=== PATIENT | female | born 1945 | race African-American/Black ===

== ENCOUNTER 2018-02-01 15:11 | Emergency (ER) | payer OTHER ==
[2018-02-01] MEDS ORDERED: Albuterol Sulfate 2.5 mg/0.5 ml Neb ONE (15:34)
[2018-02-01] MEDS ORDERED: Sodium Chloride 0.9% 500 ML ONE ×2 (15:34→16:36)
--- NOTE | 2018-02-01 15:48 | RAD ---
CHEST 1 VIEW: HISTORY: Dyspnea. COMPARISON: None. FINDINGS: There is complete volume loss of the right hemithorax with rightward shift of the mediastinum. Old r ight-sided posterior rib fractures. There are surgical clips seen along the right hilum. There is mild interstitial pulmonary edema. There appears to be a catheter coiled over the left gail thorax of uncertain location. IMPRESSION: 1. Complete volume loss right hemithorax, likely pneumonectomy changes as there are surgical clips a long the right hilum. 2. What appears to be a catheter projecting in the left hemithorax or uncertain location separate fr om the nasal canula. 3. Mild pulmonary edema. POS: [facility]
[2018-02-01 15:54] LABS: #Lymphocytes 0.9 thou/uL (1.20-3.40); #Monocytes 0.2 thou/uL (0.11-0.59); #Neutrophils 5.6 thou/uL (1.40-6.50); %Basophils 0.2 % (0.0-1.0); %Eosinophils 0.1 % (0.0-10.0); %Lymphocytes 13.7 % (21.0-51.0); %Neutrophils 83.1 % (42.0-75.0); Hemoglobin 10.6 g/dL (12.0-16.0); Mean Corpuscular Hemoglobin 25.3 pg (27.0-31.0); Mean Corpuscular Volume 81.7 fL (78.0-98.0); Mean Platelet Volume 8.4 fL (7.4-10.4); Platelet Count 182 thou/uL (130-400); RBC Distribution Width 15.1 % (11.5-14.5); Red Blood Cell (RBC) Count 4.18 mill/uL (4.20-5.40); White Blood Cell (WBC) Count 6.7 thou/uL (4.8-10.8)
[2018-02-01 16:09] LABS: ALT (SGPT) 16 U/L (8-55); AST (SGOT) 20 U/L (5-34); Albumin 3.9 g/dL (3.4-4.8); Alkaline Phosphatase 42 U/L (40-150); Anion Gap 15 mmol/L (10-20); BUN (Urea Nitrogen) 22 mg/dL (9.8-20.1); Bilirubin, Total 0.5 mg/dL (0.2-1.2); Calc. Creatinine Clearance 0 mL/min (70-130); Calcium 9.1 mg/dL (7.8-10.44); Carbon Dioxide 23 mmol/L (23-31); Chloride 109 mmol/L (98-107); Estimated GFR-MDRD 52; Globulin 2.6 g/dL (2.4-3.5); Glucose 196 mg/dL (83-110); Potassium 3.7 mmol/L (3.5-5.1); Protein, Total 6.5 g/dL (6.0-8.3); Sodium 143 mmol/L (136-145)
[2018-02-01 16:10] LABS: CKMB 2.2 ng/mL (0-6.6); Troponin I 0.011 ng/mL (< 0.028)
[2018-02-01] MEDS ORDERED: Sodium Chloride 0.9% 1,000 ML ONE (18:26)
== END 2018-02-01 19:09 | disposition home or self-care (01) ==
LOC: MADERS 15:11
DX: J44.1 Chronic obstructive pulmonary disease with (acute) exacerbation (principal); M19.90 Unspecified osteoarthritis, unspecified site; E11.40 Type 2 diabetes mellitus with diabetic neuropathy, unspecified; E78.5 Hyperlipidemia, unspecified; I10 Essential (primary) hypertension; F41.9 Anxiety disorder, unspecified; Z87.891 Personal history of nicotine dependence; Z79.899 Other long term (current) drug therapy
CPT/HCPCS: 36415; 71045; 80053; 82553; 83880; 84484; 85025; 93005; 94760; 96360; 96361; J7050; J7611

== ENCOUNTER 2018-02-01 20:09 | Emergency (ER) | payer OTHER | END 2018-02-01 20:42 | disposition home or self-care (01) | LOC: MADERS 20:09 | DX: R06.02 Shortness of breath (principal); E11.40 Type 2 diabetes mellitus with diabetic neuropathy, unspecified; E78.5 Hyperlipidemia, unspecified; I10 Essential (primary) hypertension; J44.9 Chronic obstructive pulmonary disease, unspecified; F41.9 Anxiety disorder, unspecified; Z87.891 Personal history of nicotine dependence; Z79.899 Other long term (current) drug therapy | CPT/HCPCS: 99284 ==